=== PATIENT | male | born 1985 | race Caucasian/White ===

== ENCOUNTER 2020-02-21 15:37 | Emergency (ER) | payer MEDICARE, SELFPAY ==
[2020-02-21 15:43] VITALS: BP 134/86; PULSE 88; RESP 21; TEMP 37.1; O2SAT 96
--- NOTE | 2020-02-21 16:08 | PC.NURSE ---
Patient tells me that he feels very manic at this time and that he wishes to regulate my medicine, not that I'm going to take it anyway. He does tell me that he has no SI/HI at this time. Patient reports that he has not been taking medication for a long time . When asked what medication he is supposed to be on but is not taking, the patient states oh, I don't know, it's so many I can't remember, not that it matters anyway. While talking to the patient his speech pattern is noted to be excessive with a very disorganized pattern. He is unable to finish one topic before moving on to a different one and coming back to original topic again later. He is oriented x 4 at this time.
--- NOTE | 2020-02-21 16:27 | ED.GENADULT ---
HPI - General Adult General Chief complaint: Psychiatric Symptoms Stated complaint: psych im going crazy Time Seen by Provider: 02/21/20 16:16 Source: patient Mode of arrival: ambulatory Limitations: no limitations History of Present Illness HPI narrative: Patient is a 34-year-old male who presents to emergency department for evaluation of having had more manic episodes of late patient notes since the quarantine he has been at home and has been feeling more anxious and manic patient lives at home with his younger brother patient notes primarily having hypersexual thoughts. Patient denies any suicidal or homicidal or any passive wish. Patient notes he has not been on his medications for over a year. Patient has seen psychiatry but has not seen them recently and has been unable to get a new appointment. Patient also has primary care but has not seen them for this. Patient is currently not taking any medications. On arrival patient resting comfortably in the room in no distress. Patient denies history of self-harm Related Data Home Medications Medication Instructions Recorded Confirmed multivitamin 1 cap PO DAILY 02/21/20 zinc 50 mg PO DAILY 02/21/20 02/21/20 Allergies Allergy/AdvReac Type Severity Reaction Status Date / Time No Known Allergies Allergy Unknown Verified 12/04/18 12:15 Review of Systems Review of Systems: All systems reviewed & are unremarkable except as noted in HPI and below PMFSH Past Medical History Medical History (Updated 02/21/20 @ 19:39 by Ramiro Garcia PA-C) Bipolar I disorder with anxious distress Social History Social History (Updated 02/21/20 @ 16:30 by Ramiro Garcia PA-C) Smoking status: Never smoker Substance use: never Substance use type: does not use Gender identity (if verbalized by the patient): Male Exam Narrative: Exam Narrative: GENERAL: Well-appearing, well-nourished, and in no acute distress. HEAD: Normocephalic, atraumatic. EYES: PERRLA and EOMI. ENT: Nares clear, no rhinorrhea or epistaxis. Mucous membranes moist. CHEST: Clear to auscultation. No respiratory distress. No wheezes rales or rhonchi HEART: Regular rate and rhythm. No murmur heard. EXTREMITIES: Normal range of motion. No edema. SKIN: Warm, dry, no rash. NEURO: No focal deficits. Alert and oriented x3. Cranial nerves II through XII grossly intact PSYCH: Normal mood and affect. Course Course Emergency Course: Patient in the room in no distress aware of case findings treatment plan diagnosis evaluated by myself and crisis felt appropriate for discharge home will have follow-up with crisis. Vital Signs Vital signs: Vital Signs Temperature 98.8 F 02/21/20 15:43 Pulse Rate 88 02/21/20 15:43 Respiratory Rate 21 H 02/21/20 15:43 Blood Pressure 134/86 02/21/20 15:43 Pulse Oximetry 96 02/21/20 15:43 Temperature 98.2 F 02/21/20 18:51 Pulse Rate 86 02/21/20 18:51 Respiratory Rate 16 02/21/20 18:51 Blood Pressure 120/85 02/21/20 18:51 Pulse Oximetry 95 02/21/20 18:51 Medical Decision Making MDM Narrative Medical decision making narrative: Patient in the room in no distress has been cooperative in the ER evaluated by myself and crisis will be sent home with a safety plan discussion was also made with family everyone is in agreement with the plan to help facilitate follow-up with his psych services also be followed up by crisis patient in the room in no distress Vital Signs Vital Signs: Vital Signs Temperature 98.8 F 02/21/20 15:43 Pulse Rate 88 02/21/20 15:43 Respiratory Rate 21 H 02/21/20 15:43 Blood Pressure 134/86 02/21/20 15:43 Pulse Oximetry 96 02/21/20 15:43 Temperature 98.2 F 02/21/20 18:51 Pulse Rate 86 02/21/20 18:51 Respiratory Rate 16 02/21/20 18:51 Blood Pressure 120/85 02/21/20 18:51 Pulse Oximetry 95 02/21/20 18:51 Lab Data Result diagrams: 02/21/20 16:47 02/21/20 16
[2020-02-21 16:55] LABS: Basophils Percent Auto 0.4 % (0.2-1.2); Eosinophils Absolute Auto 0.1 K/mm3 (0-0.3); Eosinophils Percent Auto 1.6 % (0-4.4); Hematocrit 42.7 % (42.0-52.0); Hemoglobin 14.6 g/dL (14.0-18.0); Immature Granulocyte Absolute 0.03 K/mm3 (0.00-0.031); Immature Granulocyte Percent A 0.4 % (0-0.5); Lymphocytes Absolute Auto 2.15 K/mm3 (0.9-3.2); Lymphocytes Percent Auto 28.7 % (18.3-44.2); Mean Corpuscular HGB Conc 34.2 g/dl (32-36); Mean Corpuscular Volume 87.7 fl (80-100); Mean Platelet Volume 9.1 fl (7.4-10.4); Monocytes Absolute Auto 0.9 K/mm3 (0.1-0.6); Monocytes Percent Auto 11.3 % (2.6-8.5); Neutrophils Absolute Auto 4.3 K/mm3 (1.3-6.7); Neutrophils Percent Auto 57.6 % (45.5-73.1); Platelet Count Result 306 k/mm3 (150-375); Red Blood Count 4.87 M/mm3 (4.6-6.20); Red Cell Distribution Width 12.2 % (11.5-14.5); White Blood Count 7.5 K/mm3 (4.5-10.0)
[2020-02-21 17:07] LABS: Alanine Aminotransferase 21 U/L (4-50); Albumin Level 4.5 g/dL (3.5-5.1); Alkaline Phosphatase 68 U/L (38-126); Anion Gap 9 mmol/L (8-16); Aspartate Amino Transferase 35 U/L (17-59); Bilirubin,Total 0.3 mg/dL (0.2-1.3); Blood Urea Nitrogen 9 mg/dL (9-20); Calcium 9.3 mg/dL (8.4-10.2); Carbon Dioxide 28 mmol/L (22-30); Chloride 102 mmol/L (98-107); Estimated CRCL calculation 98 ml/min; Estimated Glomerular Filt Rate > 60; Glucose 94 mg/dL (75-110); Potassium 4.1 mmol/L (3.4-5.0); Sodium 139 mmol/L (137-145)
[2020-02-21 17:22] LABS: Add Urine Microscopic? YES; Appearance Urine Clear (Clear); Bilirubin Urine Negative (Negative); Blood Urine 1+ (Negative); Color Urine Yellow (Yellow); Glucose Urine UA Negative (Negative); Ketones Urine 2+ mg/dL (Negative); Leukocyte Esterase Ur Negative LEU/UL (Negative); Mucus Urine Rare /lpf; Nitrate Urine Negative (Negative); Protein Urine 1+ mg/dL (Negative); Specific Grav Ur 1.021 (1.001-1.035); Urobilinogen Urine Negative mg/dL (<2.0); WBC Urine 0-3 /hpf
[2020-02-21 17:30] LABS: Ethanol < 10 mg/dL (<10)
[2020-02-21 17:33] VITALS: BP 131/88; PULSE 84; RESP 18; TEMP 36.6; O2SAT 96
[2020-02-21 17:41] LABS: Amphetamine Screen Urine Negative (Negative); Barbiturate Screen Urine Negative (Negative); Benzodiazepines Screen Urine Negative (Negative); Cannabinoid Screen Urine Negative (Negative); Cocaine Screen Urine Negative (Negative); Methadone Screen Urine Negative (Negative); Opiate Screen Urine Negative (Negative); Phencyclidine Screen Urine Negative (Negative)
[2020-02-21 18:51] VITALS: BP 120/85; PULSE 86; RESP 16; TEMP 36.8; O2SAT 95
[2020-02-21 20:33] VITALS: BP 129/89; PULSE 60; RESP 14; TEMP 36.7; O2SAT 95
== END 2020-02-21 20:37 | disposition home or self-care (01) ==
PROVIDERS: Emergency Medicine Emergency Medical Services; Emergency Provider Emergency Medicine; PCP Family Medicine
DX: F41.9 Anxiety disorder, unspecified (principal); F31.9 Bipolar disorder, unspecified
CPT/HCPCS: 36415; 80053; 80307; 81001; 84443; 85025; 99284

== ENCOUNTER 2024-02-02 12:00 | Emergency (ER) | payer MEDICARE, SELFPAY ==
[2024-02-02 12:06] VITALS: BP 121/88; PULSE 78; RESP 18; TEMP 36.7; O2SAT 99
--- NOTE | 2024-02-02 12:36 | ED.EYEPROB ---
HPI - Eye Problem General Chief complaint: Eye Problems Stated complaint: right eye issue Time Seen by Provider: 02/02/24 12:37 patient presents with the feeling of something stuck in his right eye for the past couple of days. patient states it might be a piece of grass. no other complaints. patient wears glasses PE: A&Ox3, BS non-labored, EOM intact, pupils are reactive, no FB visualized History of Present Illness HPI Narrative: 38 y/o male presents with the feeling of something in his right eye for 2 days. patient denies any trauma or injury. patient wears glasses but no contacts. patient thinks it might be grass. no other complaints. Onset (ago): day(s) (2) Related Data Home Medications Medication Instructions Recorded Confirmed multivitamin 1 cap PO DAILY 02/21/20 zinc 50 mg tablet 50 mg PO DAILY 02/21/20 02/21/20 Allergies Allergy/AdvReac Type Severity Reaction Status Date / Time No Known Allergies Allergy Unknown Verified 02/02/24 12:02 Review of Systems Review of Systems: All systems reviewed & are unremarkable except as noted in HPI and below Eyes: Eyes: Reports as per HPI and Reports photophobia [facility] Past Medical History Medical History (Updated 02/02/24 @ 13:05 by Yahir Rowland APRN) Bipolar I disorder with anxious distress Social History Social History (Updated 02/21/20 @ 16:30 by Ramiro Garcia, PAEllenC) Smoking status: Never smoker Substance use: never Substance use type: does not use Gender identity (if verbalized by the patient): Male Exam Const: General: healthy appearing and no acute distress HENMT: Head: normal to inspection Ears: external ears normal Eyes: Conjunctivae: conjunctivae normal Pupils: Equal, round and reactive pupils present EOM: EOMs intact bilaterally Direct Ophthalmoscopy: no photophobia Neck: Neck: normal visual inspection Chest: Chest palpation & inspection: normal inspection of the chest Resp: Effort & Inspection: normal respiratory effort Cardio: Rate: regular rate Back/Spine/Pelvis: Back: no CVA tenderness Skin: General skin exam: normal color Neuro: General: patient oriented x3 Extrem: General: normal to inspection Psych: Mental Status: mental status grossly normal Course Vital Signs Vital signs: Vital Signs Temperature 36.7 C 02/02/24 12:06 Pulse Rate 78 02/02/24 12:06 Respiratory Rate 18 02/02/24 12:06 Blood Pressure 121/88 02/02/24 12:06 Pulse Oximetry 99 02/02/24 12:06 Temperature 36.7 C 02/02/24 12:06 Pulse Rate 78 02/02/24 12:06 Respiratory Rate 18 02/02/24 12:06 Blood Pressure 121/88 02/02/24 12:06 Pulse Oximetry 99 02/02/24 12:06 Procedures FB Removal Eye Foreign Body #1: Foreign Body Removal Date: 02/02/24 Foreign Body Removal Time: 13:03 Location: eye (R) Topical anesthetic used: tetracaine Foreign body: other (no visible FB) Evidence of corneal penetration: No Foreign Body Removal Narrative: patient has corneal abrasion to right upper eye around 11 o'clock, no visible FB MDM - Eye Problem MDM Narrative Medical decision making narrative: patient has corneal abrasion. will start on polytrim and have the patient f/u with eye doctor Differential Diagnosis Differential diagnosis: Likely corneal abrasion, conjunctivitis, acute iritis, periorbital cellulitis, subconjunctival hemorrhage and ruptured globe Discharge Plan Discharge Clinical Impression: Corneal abrasion Patient Disposition: Home, Self-Care Condition: Stable Instructions: Antibiotic Form, Corneal Abrasion (ED) Additional Instructions: TAKE MEDICATIONS PRESCRIBED FOLLOW-UP WITH EYE DOCTOR IN 1 WEEK RETURN FOR WORSENING SYMPTOMS Prescriptions: New polymyxin B sulf-trimethoprim 10,000 unit- 1 mg/mL drops 1 drp EACH EYE Q3H 7 Days Qty: 10 0RF Rx Instructions: while awake; do not exceed 6 doses in 24 hours No Action
[2024-02-02 13:26] VITALS: BP 127/79; PULSE 67; RESP 16; TEMP 36.6; O2SAT 96
== END 2024-02-02 13:28 | disposition home or self-care (01) ==
PROVIDERS: Emergency Provider Nurse Practitioner Family; PCP Family Medicine
DX: S05.01XA Injury of conjunctiva and corneal abrasion without foreign body, right eye, initial encounter (principal); X58.XXXA Exposure to other specified factors, initial encounter
CPT/HCPCS: 99283; A9270